=== PATIENT | female | born 1965 ===

== ENCOUNTER 2022-01-15 07:40 | Day surgery (SDC) | payer OTHER ==
[~2022-01-15] VITALS: Ht 157.5 cm; Wt 97.1 kg
[~2022-01-15 07:40] MED LIST: LEVOTHYROXINE25 MCG PO; PROTONIX20 MG PO; TOPR PO
[2022-01-15] MEDS ORDERED: PERCOCET 5-3251 EACH PO (09:33)
[2022-01-15] MEDS ORDERED: NEURONTIN300 MG PO (09:33)
[2022-01-15] MEDS ORDERED: KETO10TA2 PO (09:33)
[2022-01-15] MEDS ORDERED: DERMOPLAST PAIN78 GM TOP (09:34)
== END 2022-01-15 16:05 | disposition home or self-care (01) ==
LOC: CIR.AMB 07:40
PROVIDERS: ATTEND Surgery
DX: D12.8 Benign neoplasm of rectum (principal); Z20.822 Contact with and (suspected) exposure to COVID-19; I10 Essential (primary) hypertension; E03.9 Hypothyroidism, unspecified; K57.30 Diverticulosis of large intestine without perforation or abscess without bleeding; R73.03 Prediabetes; E66.01 Morbid (severe) obesity due to excess calories

== ENCOUNTER 2023-10-05 05:27 | Day surgery (SDC) | payer OTHER ==
[2023-09-28 09:13] LABS: HEMATOCRIT 41.8 % (36.0-45.00); HEMOGLOBIN 14.5 g/dL (12.0-15.00); MEAN CELL VOLUME 93.6 fL (80.00-100.00); MEAN CORPUSCULAR HEMOGLOBIN 32.6 pg (27.00-32.0); MEAN CORPUSCULAR HGB CONC 34.8 g/dl (32.0-36.0); PLATELET COUNT 200 K/uL (150-450); RED BLOOD COUNT 4.46 M/uL (4.00-6.00); RED CELL DISTRIBUTION WIDTH 14.2 % (11.5-14.5)
[2023-09-28 09:23] LABS: PH,URINE 5.5 (5.0-8.0); URINE APPEARANCE Cloudy; URINE BILIRRUBIN Negative (NEGATIVE); URINE BLOOD Moderate; URINE COLOR Dark Yellow; URINE GLUCOSE Negative (NEGATIVE); URINE LEUKOCYTE Moderate; URINE NITRATE Negative; URINE PROTEIN 30 (NEGATIVE); URINE UROBILINOGEN 0.2 E.U./dl
[2023-09-28 09:27] LABS: URINE BACTERIA 458.5 uL (0.0-1933); URINE EPITHELIAL CELLS 109.2 uL (0.0-38.8); URINE RBC 80.3 uL (0.0-20.8); URINE WBC 342.7 uL (0.0-23.2)
[2023-09-28 10:08] LABS: ALBUMIN 4.1 gm/dL (3.4-5.0); BILIRUBIN TOTAL 0.54 mg/dL (0.3-1.2); CALCIUM 9.5 mg/dL (8.5-10.1); CREATININE SERUM 0.78 mg/dL (0.55-1.02); GFR 75.33; GLOBULINA 3.4 G/DL (2.4-3.5); POTASSIUM 4.4 mEq/L (3.5-5.1); TOTAL PROTEIN 7.5 gm/dL (6.4-8.2)
[2023-09-28 10:34] LABS: INR 0.95
[~2023-10-05 05:27] MED LIST changes: +COZAAR100 MG PO; +DERMOPLAST PAIN78 GM TOP; +KETO10TA2 PO; +NEURONTIN300 MG PO; +PERCOCET 5-3251 EACH PO; +TOPROL XL50 M1 PO
[2023-10-05] MEDS ORDERED: CEFAZOLIN SODIUM 2,000 MG in 0.9 % SODIUM CHLORIDE 100 ML IV ONE (08:15)
[2023-10-05] MEDS ORDERED: BUPIVACAINE HCL 30 ML VIAL IJ ONE (08:15)
[2023-10-05] MEDS ORDERED: TRAM1TAB98 PO (08:43)
[2023-10-05] MEDS ORDERED: DUI500 PO (08:43)
[2023-10-05] MEDS ORDERED: CEFAZOLIN SODIUM 1,000 MG VIAL IV ONE (08:45)
[2023-10-05] MEDS ORDERED: MEPERIDINE HCL/PF 25 MG/ML VIAL IM PRN (08:45)
[2023-10-05] MEDS ORDERED: PROMETHAZINE HCL 25 MG/ML AMPUL IM PRN (08:45)
[2023-10-05] MEDS ORDERED: CEFADROXIL 500 MG CAPSULE PO SCH (09:00)
== END 2023-10-05 10:25 | disposition home or self-care (01) ==
LOC: CIR.AMB 05:27
PROVIDERS: ATTEND Orthopaedic Surgery Sports Medicine
DX: G56.01 Carpal tunnel syndrome, right upper limb (principal); M65.9 Synovitis and tenosynovitis, unspecified; I10 Essential (primary) hypertension; E11.9 Type 2 diabetes mellitus without complications; G47.30 Sleep apnea, unspecified; F41.0 Panic disorder [episodic paroxysmal anxiety]